=== PATIENT | female | born 1935 | race Caucasian/White ===

== ENCOUNTER 2018-02-14 11:36 | Emergency (ER) | payer OTHER ==
[2018-02-14] MEDS ORDERED: SODIUM CHLORIDE 0.9% 1000ML 1,000 ML IV ONE (11:55)
[2018-02-14] MEDS ORDERED: ONDANSETRON HCL MDV 20ML 2 MG/ML VIAL ONE (11:55)
[2018-02-14] MEDS ORDERED: MORPHINE SULFATE 4 MG/1ML SYG ONE (11:55)
[2018-02-14 12:53] LABS: BASOPHILS % (AUTO) 0.4 % (0.0-5.0); EOSINOPHILS % (AUTO) 0.6 % (0.0-8.0); HEMATOCRIT 43.6 % (36-48); LYMPHOCYTES % (AUTO) 24.9 % (21.0-51.0); MEAN CORPUSCULAR HEMOGLOBIN 29.1 pg (27.0-33.0); MEAN CORPUSCULAR HGB CONC 33.3 g/dL (32.0-36.0); MEAN CORPUSCULAR VOLUME 87.4 fL (79-99); MONOCYTES % (AUTO) 11.2 % (3.0-13.0); NEUTROPHILS % (AUTO) 62.9 % (40.0-77.0); PLATELET COUNT (AUTO) 133 K/uL (130-400); RED BLOOD CELL COUNT(AUTO) 4.98 MIL/uL (4.00-5.50); RED CELL DISTRIBUTION WIDTH 14.4 % (11.0-15.5); WHITE BLOOD COUNT (AUTO) 8.9 K/uL (4.8-10.8)
[2018-02-14 12:54] LABS: APPEARANCE,URINE Clear (CLEAR); BILIRUBIN,URINE Negative (NEGATIVE); COLOR,URINE COLORLESS (YELLOW); GLUCOSE, URINE (UA) Negative (NEGATIVE); KETONES,URINE Negative (NEGATIVE); LEUKOCYTE ESTERASE ,URINE Moderate (NEGATIVE); NITRATE,URINE Negative (NEGATIVE); OCCULT BLOOD,URINE Negative (NEGATIVE); PH,URINE 7.5 (5.0-8.0); PROTEIN,URINE POS 1+ (NEGATIVE); UROBILINOGEN,URINE 0.2 mg/dL (0.2-1.0)
[2018-02-14 13:02] LABS: CREATININE 1.2 mg/dL (0.5-1.5); POTASSIUM 5.2 mmol/L (3.5-5.1)
[2018-02-14 13:06] LABS: BILIRUBIN,DIRECT 0.2 mg/dL (0.0-0.3); BILIRUBIN,TOTAL 0.7 mg/dL (0.2-1.0); TOTAL PROTEIN, SERUM 8.1 g/dL (6.0-8.3)
[2018-02-14 13:09] LABS: BACTERIA,URINE Moderate /HPF (None Seen); RBC,URINE None Seen /HPF (0-1); SQUAMOUS EPITHELIAL CELL,UR Rare /HPF (0-2)
== END 2018-02-14 14:15 | disposition home or self-care (01) ==
LOC: EDH 11:36
DX: R10.84 Generalized abdominal pain (principal); E11.9 Type 2 diabetes mellitus without complications; E78.5 Hyperlipidemia, unspecified; I10 Essential (primary) hypertension; Z90.710 Acquired absence of both cervix and uterus; Z90.49 Acquired absence of other specified parts of digestive tract; Z98.890 Other specified postprocedural states
CPT/HCPCS: 36415; 71045; 74176; 80048; 80076; 81001; 82550; 83690; 84484; 85025; 93005; 96374; 96375; 99285; J2270; J7030

== ENCOUNTER 2019-02-14 10:45 | Emergency (ER) | payer OTHER ==
[2019-02-14 12:25] LABS: BASOPHILS % (AUTO) 0.6 % (0.0-5.0); EOSINOPHILS % (AUTO) 0.9 % (0.0-8.0); HEMATOCRIT 45.1 % (36-48); LYMPHOCYTES % (AUTO) 26.4 % (21.0-51.0); MEAN CORPUSCULAR HEMOGLOBIN 29.7 pg (27.0-33.0); MEAN CORPUSCULAR VOLUME 90.1 fL (79-99); MONOCYTES % (AUTO) 9.6 % (3.0-13.0); NEUTROPHILS % (AUTO) 62.5 % (40.0-77.0); PLATELET COUNT (AUTO) 129 K/uL (130-400); RED BLOOD CELL COUNT(AUTO) 5.01 MIL/uL (4.00-5.50); RED CELL DISTRIBUTION WIDTH 14.2 % (11.0-15.5); WHITE BLOOD COUNT (AUTO) 7.3 K/uL (4.8-10.8)
[2019-02-14 12:39] LABS: CREATININE 1.4 mg/dL (0.5-1.5); POTASSIUM 4.4 mmol/L (3.5-5.1)
== END 2019-02-14 14:12 | disposition home or self-care (01) ==
LOC: EDH 10:45
DX: S42.101A Fracture of unspecified part of scapula, right shoulder, initial encounter for closed fracture (principal); I10 Essential (primary) hypertension; E11.9 Type 2 diabetes mellitus without complications; E78.5 Hyperlipidemia, unspecified; Z79.84 Long term (current) use of oral hypoglycemic drugs; W01.0XXA Fall on same level from slipping, tripping and stumbling without subsequent striking against object, initial encounter; Y93.89 Activity, other specified; Y92.89 Other specified places as the place of occurrence of the external cause; Y99.8 Other external cause status
CPT/HCPCS: 36415; 70450; 73060; 80048; 84484; 85025; 93005

== ENCOUNTER → 2020-05-27 | Outpatient (CLI) | payer OTHER | END | disposition home or self-care (01) | LOC: RAH 12:53 | PROVIDERS: ATTEND Internal Medicine | DX: G31.1 Senile degeneration of brain, not elsewhere classified (principal); I67.82 Cerebral ischemia; D32.0 Benign neoplasm of cerebral meninges | CPT/HCPCS: 70450 ==

== ENCOUNTER 2022-04-26 12:51 | Inpatient (IN) | payer OTHER ==
[~2022-04-26] VITALS: Ht 172.7 cm; Wt 87.2 kg
[~2022-04-26 12:51] MED LIST: ATOR10TA69 PO; CHOL500051 PO; CYAN3000 SL; FERR324T4 PO; INSU3INS3 SQ; LINA5TAB PO; LOSA25TA2 PO; METO50 PO; Psyllium Seed PO
[2022-04-26] MEDS ORDERED: DILTIAZEM 25MG INJ IVP ONE (13:30)
[2022-04-26 14:01] LABS: BASOPHILS % (AUTO) 0.3 % (0.0-5.0); EOSINOPHILS % (AUTO) 0.3 % (0.0-8.0); HEMATOCRIT 37.4 % (36-48); LYMPHOCYTES % (AUTO) 19.1 % (21.0-51.0); MEAN CORPUSCULAR HEMOGLOBIN 29.7 pg (27.0-33.0); MEAN CORPUSCULAR HGB CONC 31.8 g/dL (32.0-36.0); MEAN CORPUSCULAR VOLUME 93.3 fL (79-99); MONOCYTES % (AUTO) 11.2 % (3.0-13.0); NEUTROPHILS % (AUTO) 68.6 % (40.0-77.0); PLATELET COUNT (AUTO) 160 K/uL (130-400); RED BLOOD CELL COUNT(AUTO) 4.01 MIL/uL (4.00-5.50); RED CELL DISTRIBUTION WIDTH 14.4 % (11.0-15.5); WHITE BLOOD COUNT (AUTO) 8.8 K/uL (4.8-10.8)
[2022-04-26 14:17] LABS: INR 1.01 (0.85-1.15)
[2022-04-26 14:18] LABS: PARTIAL THROMBOPLASTIN TIME 24.8 SEC (26.3-35.5)
[2022-04-26 14:22] LABS: ALBUMIN 2.9 g/dL (3.5-5.0); CREATININE 1.6 mg/dL (0.5-1.5); TOTAL PROTEIN, SERUM 6.5 g/dL (6.0-8.3)
[2022-04-26] MEDS ORDERED: ENOXAPARIN SODIUM 1 MG/KG SQ SCH (15:30)
[2022-04-26] MEDS ORDERED: FUROSEMIDE 40MG VIAL IV ONE (15:30)
[2022-04-26] MEDS: CEFTRIAXONE 1G VIAL IVP SCH (16:00)
[2022-04-26] MEDS ORDERED: DILTIAZEM 125 MG/25 ML INJ IV ONE (16:28)
[2022-04-26] MEDS: FUROSEMIDE 20MG VIAL IV SCH (16:38)
[2022-04-26] MEDS: DILTIAZEM 125 MG/25 ML INJ 125 MG in 0.9%NACL 100ML 100 ML IV SCH (16:39)
[2022-04-26 17:15] LABS: MAGNESIUM 1.5 mg/dL (1.80-2.40); THYROID STIMULATING HORMONE 1.11 uIU/mL (0.36-3.74)
[2022-04-26 17:59] LABS: HEMOGLOBIN A1C 9.1 % (4.0-6.0)
[2022-04-26 19:38] LABS: APPEARANCE,URINE Clear (CLEAR); BILIRUBIN,URINE Negative (NEGATIVE); COLOR,URINE Yellow (YELLOW); GLUCOSE, URINE (UA) Negative (NEGATIVE); KETONES,URINE Negative (NEGATIVE); LEUKOCYTE ESTERASE ,URINE Negative (NEGATIVE); NITRATE,URINE Negative (NEGATIVE); OCCULT BLOOD,URINE Negative (NEGATIVE); PROTEIN,URINE Negative (NEGATIVE); UROBILINOGEN,URINE 0.2 mg/dL (0.2-1.0)
[2022-04-26] MEDS ORDERED: MAGNESIUM 2GM PREMIX 50ML 50 ML IV SCH (21:30)
[2022-04-26] MEDS ORDERED: POLY17PO4 PO (22:13)
[2022-04-26] MEDS ORDERED: GLIP10TA9 PO (22:13)
[2022-04-26] MEDS ORDERED: OMEG-125 PO (22:13)
[2022-04-26] MEDS ORDERED: DULA1.5P SQ (22:13)
[2022-04-26] MEDS ORDERED: METO50TA18 PO (22:13)
[2022-04-26] MEDS ORDERED: VITA-328 PO (22:13)
[2022-04-26] MEDS ORDERED: VITAMIN D PO (22:13)
[2022-04-26] MEDS ORDERED: LOSA25TA41 PO (22:13)
[2022-04-26] MEDS ORDERED: ATOR10 PO (22:13)
[2022-04-26] MEDS ORDERED: CYAN250010 PO (22:13)
[2022-04-26] MEDS ORDERED: BIOT5000 PO (22:13)
[2022-04-26] MEDS ORDERED: HYDR12.54 PO (22:13)
[2022-04-26] MEDS ORDERED: DOCU-116 PO (22:13)
[2022-04-27] MEDS ORDERED: DILTIAZEM 125 MG/25 ML INJ IV ONE (01:43)
[2022-04-27] MEDS: DILTIAZEM 125 MG/25 ML INJ 125 MG in 0.9%NACL 100ML 100 ML IV SCH ×2 (01:56→10:51)
[2022-04-27 04:00] VITALS: BP 143/62
[2022-04-27] MEDS ORDERED: MAGNESIUM 2GM PREMIX 50ML 50 ML IV PRN (04:00)
[2022-04-27 06:53] LABS: BASOPHILS % (AUTO) 0.2 % (0.0-5.0); EOSINOPHILS % (AUTO) 0.4 % (0.0-8.0); HEMATOCRIT 36.1 % (36-48); LYMPHOCYTES % (AUTO) 14.1 % (21.0-51.0); MEAN CORPUSCULAR HEMOGLOBIN 29.3 pg (27.0-33.0); MEAN CORPUSCULAR HGB CONC 31.3 g/dL (32.0-36.0); MEAN CORPUSCULAR VOLUME 93.5 fL (79-99); MONOCYTES % (AUTO) 12.1 % (3.0-13.0); NEUTROPHILS % (AUTO) 72.6 % (40.0-77.0); PLATELET COUNT (AUTO) 157 K/uL (130-400); RED BLOOD CELL COUNT(AUTO) 3.86 MIL/uL (4.00-5.50); RED CELL DISTRIBUTION WIDTH 14.6 % (11.0-15.5); WHITE BLOOD COUNT (AUTO) 9.4 K/uL (4.8-10.8)
[2022-04-27 07:05] LABS: CREATININE 1.3 mg/dL (0.5-1.5); MAGNESIUM 1.3 mg/dL (1.80-2.40); POTASSIUM 3.7 mmol/L (3.5-5.1)
[2022-04-27] MEDS: INSULIN HUMULIN R 100 UNIT/ML 3ML SQ SCH ×4 (07:30→21:00)
[2022-04-27 08:00] VITALS: BP 138/72
[2022-04-27] MEDS: ENOXAPARIN SODIUM 30 MG/0.3 ML SQ SCH (08:51)
[2022-04-27] MEDS: DOCUSATE SODIUM 100 MG CAP PO SCH ×2 (08:56→21:13)
[2022-04-27] MEDS: CYANOCOBALAMIN (VITAMIN B-12) 1,000 MCG TABLET PO SCH (08:56)
[2022-04-27] MEDS: BIOTIN 5000 MCG PO SCH (08:57)
[2022-04-27] MEDS: FUROSEMIDE 20MG VIAL IV SCH ×2 (08:57→21:13)
[2022-04-27] MEDS ORDERED: POTASSIUM CHLORIDE 20MEQ/100ML 100 ML IV PRN (09:30)
[2022-04-27] MEDS ORDERED: POTASSIUM CHLORIDE 10% ELIXIR 20 MEQ/15 ML UDCUP PO PRN (09:30)
[2022-04-27] MEDS ORDERED: LIDOCAINE HCL-MPF 1% 2ML VIAL IV PRN (09:30)
[2022-04-27] MEDS ORDERED: KCL 20 MEQ ERTAB PO PRN (09:30)
[2022-04-27] MEDS: IPRATROPIUM 0.5 MG/2.5 ML INH IH SCH ×3 (11:56→23:48)
[2022-04-27 12:00] VITALS: BP 117/74
[2022-04-27 12:54] LABS: CREATININE 1.4 mg/dL (0.5-1.5); MAGNESIUM 1.8 mg/dL (1.80-2.40); POTASSIUM 3.9 mmol/L (3.5-5.1)
[2022-04-27 16:00] VITALS: BP 114/69
[2022-04-27] MEDS ORDERED: PHARMACY COMMUNICATION MISC SCH (16:30)
[2022-04-27] MEDS: CEFTRIAXONE 1G VIAL IVP SCH (16:53)
[2022-04-27] MEDS: PHARMACY COMMUNICATION**REMDESIVIR MISC SCH (17:00)
[2022-04-27 20:03] VITALS: BP 102/51
[2022-04-27] MEDS: BARICITINIB (EUA) 2 MG TABLET PO SCH (20:03)
[2022-04-27] MEDS ORDERED: FAMOTIDINE 20MG VIAL IV SCH (21:00)
[2022-04-27] MEDS: SOLU-MEDROL 40MG VIAL IVP SCH (21:13)
[2022-04-27] MEDS: METOPROLOL TARTRATE 25 MG TAB PO SCH (21:13)
[2022-04-27] MEDS: ATORVASTATIN 10 MG TABLET PO SCH (21:13)
[2022-04-27 23:58] VITALS: BP 115/57
[2022-04-28 04:00] VITALS: BP 106/56
[2022-04-28 04:17] LABS: BASOPHILS % (AUTO) 0.3 % (0.0-5.0); HEMATOCRIT 37.7 % (36-48); LYMPHOCYTES % (AUTO) 10.1 % (21.0-51.0); MEAN CORPUSCULAR HEMOGLOBIN 29.3 pg (27.0-33.0); MEAN CORPUSCULAR VOLUME 94.3 fL (79-99); MONOCYTES % (AUTO) 1.8 % (3.0-13.0); NEUTROPHILS % (AUTO) 87.3 % (40.0-77.0); PLATELET COUNT (AUTO) 155 K/uL (130-400); RED CELL DISTRIBUTION WIDTH 14.7 % (11.0-15.5); WHITE BLOOD COUNT (AUTO) 6.7 K/uL (4.8-10.8)
[2022-04-28 04:48] LABS: ALBUMIN 2.8 g/dL (3.5-5.0); CREATININE 1.6 mg/dL (0.5-1.5); CRP QUANTITATIVE 29.9 mg/L (0.00-9.0); POTASSIUM 4.6 mmol/L (3.5-5.1); TOTAL PROTEIN, SERUM 6.7 g/dL (6.0-8.3)
[2022-04-28] MEDS: INSULIN HUMULIN R 100 UNIT/ML 3ML SQ SCH ×5 (06:37→21:00)
[2022-04-28] MEDS: IPRATROPIUM 0.5 MG/2.5 ML INH IH SCH ×4 (06:48→23:06)
[2022-04-28 08:00] VITALS: BP 107/60
[2022-04-28] MEDS: FUROSEMIDE 20MG VIAL IV SCH ×2 (08:00→21:01)
[2022-04-28] MEDS ORDERED: INSULIN GLARGINE 100 UNITS/ML 10 ML VIAL SQ SCH (09:00)
[2022-04-28] MEDS: ENOXAPARIN SODIUM 30 MG/0.3 ML SQ SCH (09:00)
[2022-04-28] MEDS: BIOTIN 5000 MCG PO SCH (09:00)
[2022-04-28] MEDS: PHARMACY COMMUNICATION**REMDESIVIR MISC SCH (09:24)
[2022-04-28] MEDS: DILTIAZEM 125 MG/25 ML INJ 125 MG in 0.9%NACL 100ML 100 ML IV SCH (09:53)
[2022-04-28] MEDS: BARICITINIB (EUA) 2 MG TABLET PO SCH (09:59)
[2022-04-28] MEDS: SOLU-MEDROL 40MG VIAL IVP SCH (09:59)
[2022-04-28] MEDS: DOCUSATE SODIUM 100 MG CAP PO SCH ×2 (09:59→21:01)
[2022-04-28] MEDS: METOPROLOL TARTRATE 25 MG TAB PO SCH ×2 (09:59→21:01)
[2022-04-28] MEDS: CYANOCOBALAMIN (VITAMIN B-12) 1,000 MCG TABLET PO SCH (10:00)
[2022-04-28 12:23] VITALS: BP 109/61
[2022-04-28] MEDS: CEFTRIAXONE 1G VIAL IVP SCH (15:43)
[2022-04-28 16:36] VITALS: BP 113/63
[2022-04-28 19:00] VITALS: BP 127/97
[2022-04-28] MEDS ORDERED: AMIODARONE 900MG VIAL 360 MG in DEXTROSE 5%-WATER 200 ML IV SCH (19:30)
[2022-04-28] MEDS ORDERED: AMIODARONE 900MG VIAL 150 MG in DEXTROSE 5%-WATER 100 ML IV SCH (19:30)
[2022-04-28] MEDS: APIXABAN 2.5 MG TABLET PO SCH (21:00)
[2022-04-28] MEDS: ATORVASTATIN 10 MG TABLET PO SCH (21:01)
[2022-04-29 00:20] VITALS: BP 109/72
[2022-04-29] MEDS ORDERED: AMIODARONE 900MG VIAL 540 MG in DEXTROSE 5%-WATER 300 ML IV ONE (01:30)
[2022-04-29 03:01] VITALS: BP 148/48
[2022-04-29 06:21] LABS: CREATININE 2.3 mg/dL (0.5-1.5); POTASSIUM 4.9 mmol/L (3.5-5.1)
[2022-04-29] MEDS: INSULIN HUMULIN R 100 UNIT/ML 3ML SQ SCH ×6 (06:42→22:21)
[2022-04-29 06:50] LABS: BASOPHILS % (AUTO) 0.1 % (0.0-5.0); HEMATOCRIT 36.9 % (36-48); LYMPHOCYTES % (AUTO) 7.9 % (21.0-51.0); MEAN CORPUSCULAR HGB CONC 32.5 g/dL (32.0-36.0); MEAN CORPUSCULAR VOLUME 92.3 fL (79-99); MONOCYTES % (AUTO) 5.7 % (3.0-13.0); PLATELET COUNT (AUTO) 145 K/uL (130-400); RED CELL DISTRIBUTION WIDTH 14.7 % (11.0-15.5)
[2022-04-29] MEDS: IPRATROPIUM 0.5 MG/2.5 ML INH IH SCH ×4 (07:04→23:51)
[2022-04-29 08:00] VITALS: BP 140/98
[2022-04-29] MEDS: BIOTIN 5000 MCG PO SCH (09:00)
[2022-04-29] MEDS: PREDNISONE 20 MG TABLET PO SCH (09:17)
[2022-04-29] MEDS: DOCUSATE SODIUM 100 MG CAP PO SCH ×2 (09:17→21:21)
[2022-04-29] MEDS: METOPROLOL TARTRATE 25 MG TAB PO SCH ×2 (09:17→21:22)
[2022-04-29] MEDS: BARICITINIB (EUA) 2 MG TABLET PO SCH (09:18)
[2022-04-29] MEDS: CYANOCOBALAMIN (VITAMIN B-12) 1,000 MCG TABLET PO SCH (09:18)
[2022-04-29] MEDS: PANTOPRAZOLE 40 MG TAB DR PO SCH (09:18)
[2022-04-29] MEDS: FUROSEMIDE 20MG VIAL IV SCH (09:18)
[2022-04-29] MEDS: APIXABAN 2.5 MG TABLET PO SCH ×2 (09:19→21:22)
[2022-04-29] MEDS: INSULIN GLARGINE 100 UNITS/ML 10 ML VIAL SQ SCH (09:20)
[2022-04-29 12:00] VITALS: BP 137/75
[2022-04-29 16:00] VITALS: BP 129/91
[2022-04-29] MEDS: CEFTRIAXONE 1G VIAL IVP SCH (16:54)
[2022-04-29 20:43] VITALS: BP 126/80
[2022-04-29] MEDS: AMIODARONE 200 MG TABLET PO SCH (21:22)
[2022-04-29] MEDS: ATORVASTATIN 10 MG TABLET PO SCH (21:22)
[2022-04-30 00:06] VITALS: BP 141/84
[2022-04-30 04:43] VITALS: BP 150/87
[2022-04-30] MEDS: INSULIN HUMULIN R 100 UNIT/ML 3ML SQ SCH ×7 (06:01→20:58)
[2022-04-30] MEDS: IPRATROPIUM 0.5 MG/2.5 ML INH IH SCH (06:54)
[2022-04-30 07:02] LABS: BASOPHILS % (AUTO) 0.1 % (0.0-5.0); HEMATOCRIT 36.4 % (36-48); LYMPHOCYTES % (AUTO) 10.1 % (21.0-51.0); MEAN CORPUSCULAR HEMOGLOBIN 30.2 pg (27.0-33.0); MEAN CORPUSCULAR VOLUME 91.7 fL (79-99); MONOCYTES % (AUTO) 8.6 % (3.0-13.0); NEUTROPHILS % (AUTO) 80.9 % (40.0-77.0); PLATELET COUNT (AUTO) 146 K/uL (130-400); RED BLOOD CELL COUNT(AUTO) 3.97 MIL/uL (4.00-5.50); RED CELL DISTRIBUTION WIDTH 14.7 % (11.0-15.5); WHITE BLOOD COUNT (AUTO) 10.8 K/uL (4.8-10.8)
[2022-04-30 07:16] LABS: CREATININE 1.8 mg/dL (0.5-1.5); POTASSIUM 4.1 mmol/L (3.5-5.1)
[2022-04-30 08:00] VITALS: BP 137/99
[2022-04-30] MEDS ORDERED: ZINC SULFATE 220 CAPSULE PO SCH (09:00)
[2022-04-30] MEDS ORDERED: ASCORBIC ACID 500 MG TAB PO SCH (09:00)
[2022-04-30] MEDS: BIOTIN 5000 MCG PO SCH (09:00)
[2022-04-30] MEDS: INSULIN GLARGINE 100 UNITS/ML 10 ML VIAL SQ SCH (09:13)
[2022-04-30] MEDS: CYANOCOBALAMIN (VITAMIN B-12) 1,000 MCG TABLET PO SCH (09:14)
[2022-04-30] MEDS: PANTOPRAZOLE 40 MG TAB DR PO SCH (09:14)
[2022-04-30] MEDS: AMIODARONE 200 MG TABLET PO SCH ×2 (09:14→20:58)
[2022-04-30] MEDS: DOCUSATE SODIUM 100 MG CAP PO SCH ×2 (09:15→20:58)
[2022-04-30] MEDS: APIXABAN 2.5 MG TABLET PO SCH ×2 (09:15→20:58)
[2022-04-30] MEDS: PREDNISONE 20 MG TABLET PO SCH (09:15)
[2022-04-30] MEDS: BARICITINIB (EUA) 2 MG TABLET PO SCH (09:15)
[2022-04-30] MEDS: METOPROLOL TARTRATE 25 MG TAB PO SCH (09:15)
[2022-04-30] MEDS ORDERED: IPRATROPIUM 0.5 MG/2.5 ML INH IH PRN (10:30)
[2022-04-30] MEDS ORDERED: METOPROLOL TARTRATE 25 MG TAB PO ONE (11:30)
[2022-04-30 12:00] VITALS: BP 132/77
[2022-04-30] MEDS: METOPROLOL TARTRATE 50 MG TAB PO SCH ×2 (14:43→20:58)
[2022-04-30] MEDS: CEFTRIAXONE 1G VIAL IVP SCH (15:10)
[2022-04-30 16:00] VITALS: BP 139/87
[2022-04-30 20:00] VITALS: BP 126/82
[2022-04-30] MEDS: ATORVASTATIN 10 MG TABLET PO SCH (20:58)
[2022-05-01 00:10] VITALS: BP 139/77
[2022-05-01 04:23] VITALS: BP 123/54
[2022-05-01 05:26] LABS: HEMATOCRIT 39.9 % (36-48); MEAN CORPUSCULAR HEMOGLOBIN 29.9 pg (27.0-33.0); MEAN CORPUSCULAR HGB CONC 32.3 g/dL (32.0-36.0); MEAN CORPUSCULAR VOLUME 92.6 fL (79-99); RED BLOOD CELL COUNT(AUTO) 4.31 MIL/uL (4.00-5.50); RED CELL DISTRIBUTION WIDTH 14.6 % (11.0-15.5)
[2022-05-01 05:48] LABS: ALBUMIN 2.7 g/dL (3.5-5.0); CREATININE 1.8 mg/dL (0.5-1.5); POTASSIUM 4.3 mmol/L (3.5-5.1); TOTAL PROTEIN, SERUM 6.5 g/dL (6.0-8.3)
[2022-05-01] MEDS: INSULIN HUMULIN R 100 UNIT/ML 3ML SQ SCH ×7 (07:08→20:47)
[2022-05-01 08:15] VITALS: BP 136/69
[2022-05-01] MEDS: BARICITINIB (EUA) 2 MG TABLET PO SCH (08:24)
[2022-05-01] MEDS: METOPROLOL TARTRATE 50 MG TAB PO SCH ×3 (08:25→20:44)
[2022-05-01] MEDS: PANTOPRAZOLE 40 MG TAB DR PO SCH (08:26)
[2022-05-01] MEDS: PREDNISONE 20 MG TABLET PO SCH (08:26)
[2022-05-01] MEDS: AMIODARONE 200 MG TABLET PO SCH ×2 (08:26→20:44)
[2022-05-01] MEDS: DOCUSATE SODIUM 100 MG CAP PO SCH ×2 (08:26→20:45)
[2022-05-01] MEDS: APIXABAN 2.5 MG TABLET PO SCH ×2 (08:26→20:45)
[2022-05-01] MEDS: INSULIN GLARGINE 100 UNITS/ML 10 ML VIAL SQ SCH (09:23)
[2022-05-01 12:00] VITALS: BP 137/96
[2022-05-01 16:00] VITALS: BP 126/86
[2022-05-01 20:00] VITALS: BP 124/73
[2022-05-01] MEDS: ATORVASTATIN 10 MG TABLET PO SCH (20:44)
[2022-05-02] VITALS (7 sets, daily range): BP systolic 124–169; BP diastolic 49–114
[2022-05-02 04:31] LABS: BASOPHILS % (AUTO) 0.1 % (0.0-5.0); HEMATOCRIT 36.5 % (36-48); LYMPHOCYTES % (AUTO) 22.9 % (21.0-51.0); MEAN CORPUSCULAR HEMOGLOBIN 29.7 pg (27.0-33.0); MEAN CORPUSCULAR HGB CONC 32.1 g/dL (32.0-36.0); MEAN CORPUSCULAR VOLUME 92.6 fL (79-99); MONOCYTES % (AUTO) 9.1 % (3.0-13.0); NEUTROPHILS % (AUTO) 67.3 % (40.0-77.0); PLATELET COUNT (AUTO) 141 K/uL (130-400); RED BLOOD CELL COUNT(AUTO) 3.94 MIL/uL (4.00-5.50); RED CELL DISTRIBUTION WIDTH 14.6 % (11.0-15.5)
[2022-05-02 04:51] LABS: CARBON DIOXIDE 27 mmol/L (21-32); CHLORIDE 106 mmol/L (101-111); CREATININE 1.6 mg/dL (0.5-1.5); GLOMERULAR FILTR. RATE CALC 32 mL/min (>60); GLUCOSE,RANDOM 178 mg/dL (70-105); POTASSIUM 4.2 mmol/L (3.5-5.1); SODIUM SERUM 137 mmol/L (136-145); UREA NITROGEN, BLOOD 57 mg/dL (7-18)
[2022-05-02 04:52] LABS: CRP QUANTITATIVE < 2.00 mg/L (0.00-9.0)
[2022-05-02 05:08] LABS: B-TYPE NATRIURETIC PEPTIDE 624 pg/mL (0-100)
[2022-05-02] MEDS: INSULIN HUMULIN R 100 UNIT/ML 3ML SQ SCH ×7 (06:22→21:46)
[2022-05-02] MEDS: AMIODARONE 200 MG TABLET PO SCH ×2 (08:01→21:04)
[2022-05-02] MEDS: PANTOPRAZOLE 40 MG TAB DR PO SCH (08:02)
[2022-05-02] MEDS: INSULIN GLARGINE 100 UNITS/ML 10 ML VIAL SQ SCH (08:02)
[2022-05-02] MEDS: BARICITINIB (EUA) 2 MG TABLET PO SCH (08:03)
[2022-05-02] MEDS: PREDNISONE 20 MG TABLET PO SCH (08:03)
[2022-05-02] MEDS: DOCUSATE SODIUM 100 MG CAP PO SCH ×2 (08:03→21:03)
[2022-05-02] MEDS: APIXABAN 2.5 MG TABLET PO SCH ×2 (08:03→21:03)
[2022-05-02] MEDS: METOPROLOL TARTRATE 50 MG TAB PO SCH (08:05)
[2022-05-02] MEDS ORDERED: LOSARTAN 25 MG TABLET PO SCH (09:00)
[2022-05-02] MEDS: POLYETHYLENE GLYCOL 3350 17 GM POWD.PACK PO SCH (09:00)
[2022-05-02] MEDS: METOPROLOL SUCCINATE 50 MG TAB.SR.24H PO SCH ×2 (09:00→21:04)
[2022-05-02] MEDS: FISH OIL 1000 MG/CAP PO SCH ×2 (09:15→21:03)
[2022-05-02] MEDS: NIFEDIPINE ER 30 MG TAB PO SCH (09:15)
[2022-05-02] MEDS: VITAMIN B COMPLEX 1 CAPSULE PO SCH (09:15)
[2022-05-02] MEDS: LORATADINE 10 MG TABLET PO PRN (11:49)
[2022-05-02] MEDS: ATORVASTATIN 10 MG TABLET PO SCH (21:03)
[2022-05-03 04:23] VITALS: BP 127/92
[2022-05-03 04:29] LABS: BASOPHILS % (AUTO) 0.1 % (0.0-5.0); EOSINOPHILS % (AUTO) 0.3 % (0.0-8.0); HEMATOCRIT 38.5 % (36-48); LYMPHOCYTES % (AUTO) 29.7 % (21.0-51.0); MEAN CORPUSCULAR HEMOGLOBIN 29.9 pg (27.0-33.0); MEAN CORPUSCULAR HGB CONC 32.5 g/dL (32.0-36.0); MEAN CORPUSCULAR VOLUME 92.1 fL (79-99); MONOCYTES % (AUTO) 8.2 % (3.0-13.0); NEUTROPHILS % (AUTO) 61.3 % (40.0-77.0); PLATELET COUNT (AUTO) 141 K/uL (130-400); RED BLOOD CELL COUNT(AUTO) 4.18 MIL/uL (4.00-5.50); RED CELL DISTRIBUTION WIDTH 14.6 % (11.0-15.5); WHITE BLOOD COUNT (AUTO) 6.7 K/uL (4.8-10.8)
[2022-05-03 04:52] LABS: CREATININE 1.6 mg/dL (0.5-1.5); POTASSIUM 4.1 mmol/L (3.5-5.1)
[2022-05-03] MEDS: INSULIN HUMULIN R 100 UNIT/ML 3ML SQ SCH ×4 (06:22→11:54)
[2022-05-03 07:30] VITALS: BP 148/71
[2022-05-03] MEDS: APIXABAN 2.5 MG TABLET PO SCH (08:26)
[2022-05-03] MEDS: FISH OIL 1000 MG/CAP PO SCH (08:26)
[2022-05-03] MEDS: PANTOPRAZOLE 40 MG TAB DR PO SCH (08:26)
[2022-05-03] MEDS: POLYETHYLENE GLYCOL 3350 17 GM POWD.PACK PO SCH (08:26)
[2022-05-03] MEDS: DOCUSATE SODIUM 100 MG CAP PO SCH (08:26)
[2022-05-03] MEDS: VITAMIN B COMPLEX 1 CAPSULE PO SCH (08:26)
[2022-05-03] MEDS: AMIODARONE 200 MG TABLET PO SCH (08:26)
[2022-05-03] MEDS: NIFEDIPINE ER 30 MG TAB PO SCH (08:26)
[2022-05-03] MEDS: PREDNISONE 20 MG TABLET PO SCH (08:26)
[2022-05-03] MEDS: METOPROLOL SUCCINATE 50 MG TAB.SR.24H PO SCH (08:27)
[2022-05-03] MEDS: BARICITINIB (EUA) 2 MG TABLET PO SCH (08:56)
[2022-05-03] MEDS ORDERED: INSULIN GLARGINE 100 UNITS/ML 10 ML VIAL SQ SCH (09:00)
[2022-05-03 11:00] VITALS: BP 143/89
[2022-05-03] MEDS: LORATADINE 10 MG TABLET PO PRN (11:51)
[2022-05-03] MEDS ORDERED: APIX2.5T PO (13:45)
[2022-05-03] MEDS ORDERED: NIFE-40 PO (13:45)
[2022-05-03] MEDS ORDERED: AMIO100T4 PO (13:45)
[2022-05-03] MEDS ORDERED: AMIO200T44 PO (13:45)
[2022-05-03] MEDS ORDERED: ATOR10 PO (13:45)
[2022-05-03] MEDS ORDERED: PANT40TA PO (13:45)
[2022-05-03] MEDS ORDERED: METO50TA9 PO (13:45)
[2022-05-10] MEDS ORDERED: AMIODARONE 200 MG TABLET PO SCH (09:00)
== END 2022-05-03 15:05 | disposition home or self-care (01) | DRG 177 ==
LOC: EDH 12:51 → EDHIP 15:59 → 2AH 19:01 → EDHIP 21:55 → 2AH 04-27 04:17
PROVIDERS: ADMIT Internal Medicine; ATTEND Internal Medicine
PROC: XW0DXM6 Introduction of Baricitinib into Mouth and Pharynx, External Approach, New Technology Group 6 (ICD-10-PCS; principal; 2022-04-27)
DX: U07.1 COVID-19 (principal); J12.82 Pneumonia due to coronavirus disease 2019; J96.01 Acute respiratory failure with hypoxia; I13.0 Hypertensive heart and chronic kidney disease with heart failure and stage 1 through stage 4 chronic kidney disease, or unspecified chronic kidney disease; N17.9 Acute kidney failure, unspecified; D68.59 Other primary thrombophilia; I50.9 Heart failure, unspecified; I48.91 Unspecified atrial fibrillation; E87.6 Hypokalemia; E78.5 Hyperlipidemia, unspecified; Z85.3 Personal history of malignant neoplasm of breast; Z79.899 Other long term (current) drug therapy; Z90.11 Acquired absence of right breast and nipple; Z90.49 Acquired absence of other specified parts of digestive tract; Z90.710 Acquired absence of both cervix and uterus; E11.22 Type 2 diabetes mellitus with diabetic chronic kidney disease; N18.9 Chronic kidney disease, unspecified; E11.65 Type 2 diabetes mellitus with hyperglycemia; I34.0 Nonrheumatic mitral (valve) insufficiency; Z79.01 Long term (current) use of anticoagulants; E83.42 Hypomagnesemia; F03.90 Unspecified dementia, unspecified severity, without behavioral disturbance, psychotic disturbance, mood disturbance, and anxiety
CPT/HCPCS: 36415; 70450; 71045; 76770; 80048; 80053; 81003; 82948; 83036; 83735; 83880; 84145; 84443; 84484; 85025; 85027; 85378; 85610; 85651; 85730; 86140; 87635; 93005; 93970; 94640; 94664; 94760; C9803; G0378; J0282; J0696; J1650; J1815; J1940; J2920; J3475; J3490; J7060

== ENCOUNTER → 2022-07-06 | Outpatient (CLI) | payer OTHER ==
[~2022-07-06] MED LIST changes: +AMIO100T4 PO; +AMIO200T44 PO; +APIX2.5T PO; +ATOR10 PO; -ATOR10TA69 PO; +BIOT5000 PO; -CHOL500051 PO; +CYAN250010 PO; -CYAN3000 SL; +DOCU-116 PO; +DULA1.5P SQ; -FERR324T4 PO; +GLIP10TA9 PO; -INSU3INS3 SQ; -LINA5TAB PO; -LOSA25TA2 PO; -METO50 PO; +METO50TA9 PO; +NIFE-40 PO; +OMEG-125 PO; +PANT40TA PO; +POLY17PO4 PO; -Psyllium Seed PO; +VITA-328 PO; +VITAMIN D PO
== END | disposition home or self-care (01) ==
LOC: RAH 11:05
PROVIDERS: ATTEND Internal Medicine
DX: R60.0 Localized edema (principal); D68.69 Other thrombophilia
CPT/HCPCS: 93970

== ENCOUNTER → 2022-07-28 | Outpatient (CLI) | payer OTHER | END | disposition home or self-care (01) | LOC: RAH 15:31 | PROVIDERS: ATTEND Internal Medicine | DX: J90 Pleural effusion, not elsewhere classified (principal); I51.7 Cardiomegaly | CPT/HCPCS: 71046 ==

== ENCOUNTER 2022-09-10 06:25 | Day surgery (SDC) | payer OTHER ==
[2022-09-08 16:09] LABS: BASOPHILS % (AUTO) 0.5 % (0.0-5.0); EOSINOPHILS % (AUTO) 1.4 % (0.0-8.0); HEMATOCRIT 44.4 % (36-48); LYMPHOCYTES % (AUTO) 20.3 % (21.0-51.0); MEAN CORPUSCULAR HEMOGLOBIN 28.7 pg (27.0-33.0); MEAN CORPUSCULAR HGB CONC 32.7 g/dL (32.0-36.0); MEAN CORPUSCULAR VOLUME 87.7 fL (79-99); MONOCYTES % (AUTO) 10.8 % (3.0-13.0); NEUTROPHILS % (AUTO) 66.7 % (40.0-77.0); PLATELET COUNT (AUTO) 116 K/uL (130-400); RED BLOOD CELL COUNT(AUTO) 5.06 MIL/uL (4.00-5.50); RED CELL DISTRIBUTION WIDTH 16.4 % (11.0-15.5); WHITE BLOOD COUNT (AUTO) 5.9 K/uL (4.8-10.8)
[2022-09-08 16:19] LABS: CREATININE 2.6 mg/dL (0.5-1.5)
[2022-09-08 16:27] LABS: POTASSIUM 2.7 mmol/L (3.5-5.1)
[2022-09-08 16:51] LABS: INR 1.15 (0.85-1.15); PROTHROMBIN TIME 12.4 SEC (9.6-11.6)
[2022-09-08 16:52] LABS: PARTIAL THROMBOPLASTIN TIME 31.3 SEC (26.3-35.5)
[2022-09-09 11:25] LABS: CREATININE 2.5 mg/dL (0.5-1.5); POTASSIUM 3.5 mmol/L (3.5-5.1)
[2022-09-09 14:15] VITALS: BP 109/69
[~2022-09-10] VITALS: Ht 167.6 cm; Wt 85.1 kg
[~2022-09-10 06:25] MED LIST changes: -AMIO100T4 PO; -AMIO200T44 PO; +AMIO200T68 PO; -ATOR10 PO; -BIOT5000 PO; -CYAN250010 PO; -DOCU-116 PO; -DULA1.5P SQ; +FOLI1TAB85 PO; +FURO40TA5 PO; +INSU300I SQ; -METO50TA9 PO; +METO75TA PO; -NIFE-40 PO; -OMEG-125 PO; -PANT40TA PO; -POLY17PO4 PO; -VITA-328 PO; +VITAMIN B12 PO; -VITAMIN D PO; +VITAMIN D3 PO
[2022-09-10 06:38] VITALS: BP 105/50
[2022-09-10] MEDS ORDERED: NALOXONE HCL 0.4 MG/1 ML ML ONE (07:52)
[2022-09-10] MEDS ORDERED: FLUMAZENIL 0.1MG/1ML 5ML VIAL IV ONE (07:52)
[2022-09-10] MEDS ORDERED: FENTANYL CITRATE PF 50 MCG/1 ML 2ML VIAL ONE (07:53)
[2022-09-10] MEDS ORDERED: LIDOCAINE HCL 2% VISCOUS 15 ML UDCUP ONE (07:54)
[2022-09-10] MEDS ORDERED: MIDAZOLAM HCL 1 MG/ML 2ML VIAL ONE (07:54)
[2022-09-10] MEDS ORDERED: 0.9%NACL 1000ML 1,000 ML IV SCH (08:00)
[2022-09-10 08:55] VITALS: BP 114/48
== END 2022-09-10 09:00 | disposition home or self-care (01) ==
LOC: DAH 06:25 → EDSTATUS 09:00
PROVIDERS: ATTEND Internal Medicine Interventional Cardiology
DX: I48.91 Unspecified atrial fibrillation (principal); I49.5 Sick sinus syndrome; I12.9 Hypertensive chronic kidney disease with stage 1 through stage 4 chronic kidney disease, or unspecified chronic kidney disease; N18.9 Chronic kidney disease, unspecified; I73.9 Peripheral vascular disease, unspecified; E78.2 Mixed hyperlipidemia; Z90.49 Acquired absence of other specified parts of digestive tract; Z98.890 Other specified postprocedural states; Z98.62 Peripheral vascular angioplasty status; Z79.899 Other long term (current) drug therapy; Z90.11 Acquired absence of right breast and nipple; Z79.01 Long term (current) use of anticoagulants; Z82.49 Family history of ischemic heart disease and other diseases of the circulatory system; Z82.3 Family history of stroke; Z20.822 Contact with and (suspected) exposure to COVID-19
CPT/HCPCS: 36415; 80048; 82948; 85025; 85610; 85730; 87426; 93005; J2250; J2310; J3010; J3490

== ENCOUNTER 2022-10-18 06:21 | Day surgery (SDC) | payer OTHER ==
[2022-10-14 13:01] LABS: BASOPHILS % (AUTO) 0.3 % (0.0-5.0); EOSINOPHILS % (AUTO) 0.1 % (0.0-8.0); HEMATOCRIT 41.5 % (36-48); LYMPHOCYTES % (AUTO) 14.1 % (21.0-51.0); MEAN CORPUSCULAR HEMOGLOBIN 28.3 pg (27.0-33.0); MEAN CORPUSCULAR HGB CONC 31.1 g/dL (32.0-36.0); MONOCYTES % (AUTO) 11.7 % (3.0-13.0); NEUTROPHILS % (AUTO) 73.2 % (40.0-77.0); PLATELET COUNT (AUTO) 136 K/uL (130-400); RED BLOOD CELL COUNT(AUTO) 4.56 MIL/uL (4.00-5.50); RED CELL DISTRIBUTION WIDTH 18.9 % (11.0-15.5)
[2022-10-14 13:09] LABS: INR 1.14 (0.85-1.15); PROTHROMBIN TIME 12.3 SEC (9.6-11.6)
[2022-10-14 13:23] LABS: CREATININE 3.1 mg/dL (0.5-1.5)
[2022-10-14 15:30] VITALS: BP 97/63
[2022-10-18] VITALS (16 sets, daily range): BP systolic 103–135; BP diastolic 59–93
[~2022-10-18] VITALS: Ht 167.6 cm; Wt 83.2 kg
[~2022-10-18 06:21] MED LIST changes: +METO50TA18 PO; -METO75TA PO
[2022-10-18] MEDS ORDERED: LIDOCAINE HCL 2% VISCOUS 15 ML UDCUP ONE (07:49)
[2022-10-18] MEDS ORDERED: NALOXONE HCL 0.4 MG/1 ML ML ONE (07:57)
[2022-10-18] MEDS ORDERED: FENTANYL CITRATE PF 50 MCG/1 ML 2ML VIAL ONE (07:57)
[2022-10-18] MEDS ORDERED: FLUMAZENIL 0.1MG/1ML 5ML VIAL IV ONE (07:57)
[2022-10-18] MEDS ORDERED: MIDAZOLAM HCL 1 MG/ML 2ML VIAL ONE (07:57)
== END 2022-10-18 11:00 | disposition home or self-care (01) ==
LOC: DAH 06:21 → EDSTATUS 11:00
PROVIDERS: ATTEND Student in an Organized Health Care Education/Training Program
DX: I48.0 Paroxysmal atrial fibrillation (principal); I08.3 Combined rheumatic disorders of mitral, aortic and tricuspid valves; Q21.12 Patent foramen ovale; I10 Essential (primary) hypertension; E11.9 Type 2 diabetes mellitus without complications; M19.90 Unspecified osteoarthritis, unspecified site; E78.2 Mixed hyperlipidemia; Z85.3 Personal history of malignant neoplasm of breast; Z90.49 Acquired absence of other specified parts of digestive tract; Z82.49 Family history of ischemic heart disease and other diseases of the circulatory system; Z80.9 Family history of malignant neoplasm, unspecified; Z72.89 Other problems related to lifestyle; Z79.01 Long term (current) use of anticoagulants; Z79.899 Other long term (current) drug therapy; Z86.16 Personal history of COVID-19; Z98.890 Other specified postprocedural states
CPT/HCPCS: 80048; 85025; 85610; 85730; 36415; 93005; 82948 ×2; 93325; 93312; A4223 ×3; J3010; J2250; A4215; A4657; A7002; A4222; A4221; A4663; A4216; J7030; A4606; 99152; J2310; J3490